=== PATIENT | female | born 1945 | race Caucasian/White ===

== ENCOUNTER 2023-04-11 11:52 | Emergency (ER) | payer MEDICARE ==
[~2023-04-11] VITALS: Ht 157.5 cm; Wt 86.2 kg
[2023-04-11 14:21] LABS: BASOPHILS 0.7 % (0-2); EOSINOPHILS 0.9 % (0-6); HEMATOCRIT 35.5 % (35.0-50.0); HEMOGLOBIN 11.6 g/dL (12.0-18.0); MCH 27.1 (27-36); MCHC 32.8 g/dl (30-36); MCV 82.5 fl (81-99); MONOCYTES 8.5 % (0-12); NEUTROPHILS 66.9 % (39-80); PLATELET COUNT 176 K/uL (140-440); RDW 16.4 (10.5-15.0)
[2023-04-11 14:37] LABS: ALBUMIN 3.6 g/dL (3.4-5.0); ALBUMIN/GLOBULIN RATIO 1.03 (1.1-2.4); ANION GAP 14.1 (7-21); BILIRUBIN, TOTAL 0.4 ng/dL (0.2-1.0); BUN/CREATININE RATIO 15.32 (6.0-28.6); CALCIUM 9.2 mg/dL (8.5-10.1); CREATININE, SERUM 1.37 mg/dL (0.55-1.02); POTASSIUM 4.1 mmol/L (3.5-5.1); PROTEIN, TOTAL 7.1 g/dL (6.4-8.2)
[2023-04-11 19:36] LABS: INFLUENZA B NAA NEGATIVE (NEGATIVE); RESPIRATORY SYNCYTIAL VIR NAA NEGATIVE (NEGATIVE)
[2023-04-12 05:25] VITALS: BP 120/57
== END 2023-04-12 05:10 | disposition short-term general hospital (02) ==
LOC: ED 11:52
PROVIDERS: Emergency Medicine
DX: G93.6 Cerebral edema (principal); I10 Essential (primary) hypertension; Z20.822 Contact with and (suspected) exposure to COVID-19; Z91.030 Bee allergy status
CPT/HCPCS: 36415; 70450; 80053; 85025; 87502; 90471; 90715; 96374; 99285-25; A9270; J1100; U0002